=== PATIENT | male | born 1955 | race Caucasian/White ===

== ENCOUNTER → 2018-02-20 | Outpatient (CLI) | payer OTHER | LOC: COL.RAD 10:15 | DX: M51.27 Other intervertebral disc displacement, lumbosacral region (principal); M48.07 Spinal stenosis, lumbosacral region ==

== ENCOUNTER 2018-11-20 10:24 | Emergency (ER) | payer OTHER ==
[~2018-11-20] VITALS: Ht 185.4 cm; Wt 120.5 kg
[2018-11-20 10:30] VITALS: TEMP 97.3
[2018-11-20 10:54] LABS: COLLECTION METHOD CLEAN CATCH
[2018-11-20 10:57] LABS: BASO % 0.4 % (0.0-2.0); EOS # 0.2 (0.0-0.7); EOS % 3.1 % (0-4.0); GRAN # 3.4 (1.4-6.5); GRAN % 44.7 % (42.2-75.2); HEMATOCRIT 42.7 % (42.0-52.0); HEMOGLOBIN 14.4 g/dl (13.5-18.0); LYMPH # 3.2 (1.2-3.4); LYMPH % 41.9 % (20.0-51.0); MEAN CELL VOLUME 90 fl (80.0-100.0); MEAN CORPUSCULAR HEMOGLOBIN 30 pg (27.0-31.0); MEAN CORPUSCULAR HGB CONC 34 g/dl (33.0-37.0); MEAN PLATELET VOLUME 10.3 fl (7.4-10.4); MONO # 0.7 (0.1-0.6); MONO % 9.5 % (1.7-9.3); PLATELET COUNT 289 K/mm3 (130-400); RED BLOOD COUNT 4.76 M/mm3 (4.20-5.60)
[2018-11-20] MEDS ORDERED: HCTZ 25MG TAB25 MG PO (11:00)
[2018-11-20] MEDS ORDERED: SINGULAIR 110 MG/TAB PO (11:00)
[2018-11-20] MEDS ORDERED: MOBIC15 MG PO (11:01)
[2018-11-20] MEDS ORDERED: ASPIRIN 81M81 MG/TA2 PO (11:02)
[2018-11-20] MEDS ORDERED: AMBIEN 10MG10 MG PO (11:02)
[2018-11-20] MEDS ORDERED: TOPROL XL 50MG50 MG PO (11:03)
[2018-11-20] MEDS ORDERED: FORT1000TA PO (11:04)
[2018-11-20 11:05] LABS: PH 7 (5-8); SQUAMOUS EPITHELIAL None Seen /hpf; URINE APPEARANCE Cloudy; URINE BACTERIA None Seen /hpf; URINE BILIRUBIN Negative (NEGATIVE); URINE BLOOD 3+ (NEGATIVE); URINE COLOR Red; URINE GLUCOSE Negative (NEGATIVE); URINE KETONE Negative (NEGATIVE); URINE LEUKOCYTE ESTERASE Negative (NEGATIVE); URINE NITRATE Negative (NEGATIVE); URINE PROTEIN(semi-quant) 2+ (NEGATIVE); URINE RBC >50 /hpf; URINE UROBILINOGEN Negative (NEGATIVE)
[2018-11-20 11:08] LABS: ALBUMIN 4.4 gm/dL (3.5-5.0); BILIRUBIN,TOTAL 0.6 mg/dL (0.0-1.0); CALCIUM 10.2 mg/dL (8.4-10.2); CREATININE, serum 0.72 (0.66-1.25); POTASSIUM 4.3 mmol/L (3.4-5.0); TOTAL PROTEIN 7.5 gm/dL (6.4-8.2)
[2018-11-20] MEDS ORDERED: NORCO 325 MG-7.1 TAB PO (11:10)
[2018-11-20] MEDS ORDERED: ZOCOR 20MG20 MG PO (11:11)
[2018-11-20] MEDS ORDERED: NORVASC 5MG5 MG/TAB PO (11:11)
[2018-11-20] MEDS ORDERED: DESYREL 100MG100 MG PO (11:12)
[2018-11-20] MEDS ORDERED: EFFEXOR-XR150 MG PO (11:12)
[2018-11-20] MEDS ORDERED: LOFIBRA160 MG PO (11:13)
[2018-11-20] MEDS ORDERED: ELIQUIS 5MG PO (11:14)
[2018-11-20 13:40] VITALS: BP 172/110; PULSE 56
== END 2018-11-20 13:40 | disposition home or self-care (01) ==
LOC: COL.ER 10:24
PROVIDERS: Emergency Medicine
DX: R31.9 Hematuria, unspecified (principal); I48.91 Unspecified atrial fibrillation; E78.00 Pure hypercholesterolemia, unspecified; I10 Essential (primary) hypertension; F17.210 Nicotine dependence, cigarettes, uncomplicated; Z79.82 Long term (current) use of aspirin
CPT/HCPCS: J7030; Q9967